=== PATIENT | male | born 1995 | race Two or more races ===

== ENCOUNTER 2024-01-02 07:57 | Day surgery (SDC) | payer BC, OTHER ==
[~2024-01-02 07:57] MED LIST: Albuterol 0.083% 2.5 MG/3 ML Neb Soln NEB PRN; Bupivacaine 0.5% 30 ML SDV ONE; HYDROmorphone 1 MG/ML Syringe IVPUSH PRN; Metoclopramide 10 MG/2 ML SDV IVPUSH PRN; Morphine 2 MG/ML SYRINGE IVPUSH PRN; Naloxone 0.4 MG/ML SDV IVPUSH PRN; Ondansetron 4 MG/2 ML SDV IVPUSH PRN; ceFAZolin 1 GM Vial ONE; ceFAZolin 2 GM in Sodium Chloride 0.9% 50 ML IV ONE; droPERidol 5 MG/2 ML SDV IVPUSH PRN
[2024-01-02] MEDS ORDERED: Propofol 200 MG/20 ML SDV ONE (08:04)
[2024-01-02] MEDS ORDERED: fentaNYL 100 MCG/2 ML SDV ONE ×2 (08:04→10:01)
[2024-01-02] MEDS ORDERED: Water For Injection, Sterile 20 ML ONE (08:04)
[2024-01-02] MEDS ORDERED: dexmedeTOMIDine HCl 200 MCG/2 ML SDV ONE (08:04)
[2024-01-02] MEDS ORDERED: Bupivacaine 0.25% 30 ML SDV ONE (08:07)
[2024-01-02] MEDS ORDERED: Bupivacaine 0.5% 30 ML SDV ONE (08:07)
[2024-01-02] MEDS: Lactated Ringers 1,000 ML IV SCH (08:34)
[2024-01-02] MEDS ORDERED: Ondansetron 4 MG/2 ML SDV ONE (09:09)
[2024-01-02] MEDS ORDERED: Dexamethasone 4 MG/ML 5 ML MDV ONE (09:09)
[2024-01-02] MEDS ORDERED: ceFAZolin 2 GM Vial ONE (09:13)
[2024-01-02] MEDS ORDERED: Magnesium Sulfate (4.06 MEQ/ML) 5 GM/10 ML SDV ONE (09:14)
[2024-01-02] MEDS ORDERED: Ketorolac 30 MG/ML SDV ONE (10:26)
[2024-01-02] MEDS ORDERED: Ondansetron 4 MG/2 ML SDV IVPUSH PRN (10:51)
[2024-01-02] MEDS ORDERED: Morphine 4 MG/ML Syringe IVPUSH PRN (10:51)
[2024-01-02] MEDS ORDERED: Lactated Ringers 1,000 ML IV SCH (11:00)
[2024-01-02] MEDS: fentaNYL 50 MCG/ML SDV IVPUSH PRN (11:39)
[2024-01-02] MEDS: Acetaminophen/HYDROcodone 325-5 MG Tab PO PRN (11:55)
== END 2024-01-02 12:50 | disposition home or self-care (01) ==
LOC: MW.SDS 07:57
PROVIDERS: ATTEND Surgery
DX: K40.90 Unilateral inguinal hernia, without obstruction or gangrene, not specified as recurrent (principal); J45.909 Unspecified asthma, uncomplicated; J20.9 Acute bronchitis, unspecified; Z79.899 Other long term (current) drug therapy; Z88.0 Allergy status to penicillin
CPT/HCPCS: 49505; A9270; J0131; J0665; J0690; J1100; J1885; J2704; J3010; J3475; J7120; J2405; J3490